=== PATIENT | male | born 1955 | race Caucasian/White ===

== ENCOUNTER 2018-02-03 18:53 | Emergency (ER) | payer OTHER ==
--- NOTE | 2018-02-03 19:27 | RAD REPORT ---
EXAM DESCRIPTION: CT - Ct Stroke Brain Wo Cont - 02/03/2018 7:19 pm CLINICAL HISTORY: Slurred speech;Weakness CVA COMPARISON: No comparisons TECHNIQUE: All CT scans are performed using dose optimization technique as appropriate and may inclu de automated exposure control or mA/KV adjustment according to patient size. FINDINGS: No intracranial hemorrhage, hydrocephalus or extra-axial fluid collection.No areas of brai n edema or evidence of midline shift. The paranasal sinuses and mastoids are clear. The calvarium is intact. Vertebral arteries are calcifi ed. IMPRESSION: No acute intracranial abnormality.
--- NOTE | 2018-02-03 19:31 | RAD REPORT ---
EXAM DESCRIPTION: RAD - Chest Single View - 02/03/2018 7:26 pm CLINICAL HISTORY: cva assessment Chest pain. COMPARISON: No comparisons FINDINGS: Portable technique limits examination quality. The lungs are grossly clear. The heart is normal in size. No displaced fractures. IMPRESSION: No acute intrathoracic process suspected.
[2018-02-03] MEDS ORDERED: ASPIRIN 81 MG CHEWABLE TABLET ONE (19:44)
[2018-02-03 19:48] LABS: Absolute Monocytes 0.5 K/uL (0.1-1.3); Absolute Neutrophil 6.2 K/uL (1.8-8.0); Basophils % 0.6 % (0-1.3); Eosinophils % 0.8 % (0-4.4); Hematocrit 46.7 % (39.6-49.0); Lymphocytes % 12.4 % (15.3-44.8); MCH 30.7 pg (27.0-35.0); MCV 90.6 fL (80-100); MPV 9.5 fL (7.6-11.3); Monocytes % 5.8 % (3.3-12.3); RBC Red Blood Cell Count 5.15 M/uL (4.33-5.43)
[2018-02-03 20:03] LABS: Protime INR 1.07
[2018-02-03 20:11] LABS: BUN Blood Urea Nitrogen 22 mg/dL (7-18); Bicarbonate 27 mmol/L (21-32); Glucose Level 103 mg/dL (74-106); Magnesium 2.2 mg/dL (1.8-2.4); Potassium 4.3 mmol/L (3.5-5.1); Sodium Level 141 mmol/L (136-145); Troponin (Emerg Dept Use Only) < 0.02 ng/mL (0.0-0.045)
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
--- NOTE | 2018-02-04 12:35 | EKG ---
Test Date: 2018-02-03 Test Time: 19:28:09 Store Custodian: CRISTAL MEASUREMENT RESULTS: Intervals: Rate: 58 CA: 200 QRSD: 92 QT: 400 QTc: 392 [place]: P: 46 CA: 200 QRS: 31 T: 27 INTERPRETIVE STATEMENTS: Sinus bradycardia Otherwise normal ECG No previous ECG available for comparison Electronically Signed On 02-04-18 12:33:15 CDT by Clive Stacy
== END 2018-02-03 21:25 | disposition short-term general hospital (02) ==
LOC: ER 18:53
DX: R47.81 Slurred speech (principal); I10 Essential (primary) hypertension; E78.5 Hyperlipidemia, unspecified
CPT/HCPCS: 36415; 70450; 71045; 80048; 82962; 83735; 84484; 85025; 85610; 85730; 93005; 99285